=== PATIENT | male | born 1960 | race Caucasian/White ===

== ENCOUNTER → 2020-08-05 09:35 | Outpatient (CLI) | payer BC, SELFPAY ==
--- NOTE | ~2020-08-05 | MR_ITS ---
EXAMINATION: MR knee LT wo con DATE: 08/05/2020 10:47 INDICATION: Left knee pain and swelling. Meniscal tear. TECHNIQUE: Magnetic resonance imaging (MRI) of the left knee was performed without intravenous contra st. Sequences included axial PD-weighted FS FSE, coronal PD-weighted FSE and PD-weighted FS FSE, sagi ttal PD-weighted FSE, and sagittal T2-weighted FS FSE. COMPARISON: Left knee radiographs 06/30/2020 FINDINGS: Medial compartment: There is a complex tear involving body and posterior horn of medial meniscus. There is cartilage surf kim irregularity of tibial condyle. There is shallow partial-thickness cartilage loss of femoral cond yle involving the central and lateral articular surface. Lateral compartment: There is a radial tear of posterior horn of lateral meniscus. There is shallow partial-thickness cart ilage loss of tibial condyle, worst posteriorly. There is deep partial thickness cartilage loss of fe moral condyle involving the central and extreme posterior articular surface. Patellofemoral compartment: There is deep partial thickness cartilage loss of patellar medial facet and median ridge. There is de ep partial thickness cartilage loss of central and medial trochlea with mild subchondral edema-like m arrow signal intensity. Ligaments and tendons: The anterior and posterior cruciate ligaments are normal. There are changes of prior sprains of media l collateral ligament and fibular collateral ligament characterized by thickening and increased signa l intensity. There is mild patellar tendinopathy. Fluid: There is a large knee joint effusion with synovitis. There is trace fluid in a Stockton's cyst. There is mild prepatellar and superficial infrapatellar bursitis. IMPRESSION: 1. 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 2. Tears of medial and lateral menisci. 3. Large knee joint effusion with synovitis. Reviewed, dictated and finalized at location A. NSING MANAGER IMPRESSION: 1. 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 2. Tears of medial and lateral menisci. 3. Large knee joint effusion with synovitis.
== END ==
PROVIDERS: PCP Family Medicine; Visit Provider Orthopaedic Surgery
DX: S83.242A Other tear of medial meniscus, current injury, left knee, initial encounter (principal); M22.2X2 Patellofemoral disorders, left knee; S83.282A Other tear of lateral meniscus, current injury, left knee, initial encounter; M25.462 Effusion, left knee
CPT/HCPCS: 73721

== ENCOUNTER 2020-08-31 08:12 | Outpatient (CLI) | payer BC, SELFPAY ==
--- NOTE | 2020-08-31 08:15 | ECG_ITS ---
Measurements Intervals [place] Rate: 69 P: 43 MS: 161 QRS: 19 QRSD: 118 T: 42 QT: 380 QTc: 408 Interpretive Statements SINUS RHYTHM VENTRICULAR PREMATURE COMPLEX INTRAVENTRICULAR CONDUCTION DELAY DELAYED PRECORDIAL R/S TRANSITION BASELINE ARTIFACT- I, II, III, AVR, AVL, AVF BORDERLINE ECG Electronically Signed On 08-31-2020 8:57:34 [employer]OCK AND STATION AGENT by Alfa Shfaer D.O.
== END 2020-08-31 08:13 | disposition home or self-care (01) ==
LOC: ANHSURGERY 08:15
PROVIDERS: PCP Family Medicine; Visit Provider Orthopaedic Surgery
DX: Z01.818 Encounter for other preprocedural examination (principal); Z87.891 Personal history of nicotine dependence; I45.9 Conduction disorder, unspecified
CPT/HCPCS: 93005

== ENCOUNTER 2020-09-03 01:18 | Outpatient (CLI) | payer BC, SELFPAY ==
[2020-09-03 19:31] LABS: SARS-CoV-2 RNA PCR Negative
== END 2020-09-03 01:19 | disposition home or self-care (01) ==
LOC: ANHCOVIDDT 01:18
PROVIDERS: PCP Family Medicine; Visit Provider Orthopaedic Surgery
DX: Z01.818 Encounter for other preprocedural examination (principal); Z20.828 Contact with and (suspected) exposure to other viral communicable diseases
CPT/HCPCS: 87635; C9803; U0003

== ENCOUNTER 2020-09-06 00:07 | Day surgery (SDC) | payer BC, SELFPAY ==
[2020-08-29 12:17] VITALS: BMI 26.4
--- NOTE | 2020-09-05 12:57 | WPDANESEPPF ---
Anes - Initial Pre Proc Eval Procedure: Operation Date: 09/06/20 13:30 Proposed Procedures p Arthroscopic Partial Medial and Lateral Meniscectomy Left Knee - Garry Salgado MD Date/Time: 09/05/20 12:57 Surgeon: Garry Salgado MD Pre Op Diagnosis: acute meniscal tear left knee Patient Data Age: 60 Gender: M Height: 1.83 m Weight: 88.45 kg Allergies Allergy/AdvReac Type Severity Reaction Status Date / Time No Known Allergies Allergy Verified 09/06/20 11:21 Home Medications Medication Instructions Recorded Confirmed Type multivitamin 1 cap PO DAILY 05/27/20 08/29/20 History pantoprazole 40 mg tablet,delayed 40 mg PO QAM 05/27/20 08/29/20 History release rizatriptan 10 mg tablet See Rx Instructions PO .COMPLEX 05/27/20 08/29/20 History sildenafil 50 mg PO DAILY PRN 09/06/20 09/06/20 History Patient hx anesthesia problems: none Family hx anesthesia problems: none PMFSH Past Medical History Medical History (Updated 09/05/20 @ 12:57 by Geovanni Lopez DO) GERD with esophagitis History of prostate cancer Seborrheic dermatitis Ventricular premature depolarization Surgical History Surgical History (Updated 09/05/20 @ 12:57 by Geovanni Lopez DO) History of arthroscopy of right knee (~01/2018) History of prostatectomy Hx laparoscopic cholecystectomy (~12/2018) Hx of hand surgery Family History Family History Father Malignant neoplasm of prostate Father Malignant neoplasm of prostate Other Malignant neoplasm of prostate Social History Social History Smoking packs per day: 1 Smoking cigarettes per day: 20.0 Years smoked: 20 Smoking pack-years: 20.00 Smoking status: Former smoker Tobacco type: cigarettes Second hand tobacco smoke exposure: No Smoking end date: 09/09/04 Alcohol intake: current Alcohol use details: 4-5 DRINKS PER MONTH Living arrangements: with family Spiritual care concerns: No Anes - Eval Final PreProcedure Day of Procedure 09/05/20 12:57 Patient weight: overweight Heart: regular rate and rhythm Lungs: clear to auscultation and normal air movement Airway: Mallampati scale class II Neurological: alert and oriented Last oral intake: >/= 8 hours ASA classification: II Emergent: no Anesthetic plan: proceed Anesthesia type and monitoring: general LMA and standard monitoring Informed Consent: The patient's anesthetic plan and its attendant risks and benefits were discussed with the patient/family/POA. Questions were solicited and answers provided to the satisfaction of the patient/family/POA.
[2020-09-06] MEDS: ACETAMINOPHEN 500 MG TABLET 1000 MG PO (11:32)
[2020-09-06] MEDS: LACTATED RINGERS 1,000 ML 30 ML IV CONT ×2 (11:32→15:24)
[2020-09-06] MEDS: KETOROLAC 15 MG/ML VIAL (*BKC) IV PUSH (11:37)
[2020-09-06 11:40] VITALS: BP 126/83; PULSE 47; RESP 20; TEMP 36.5; O2SAT 98
--- NOTE | 2020-09-06 12:31 | WPDHPUPDATE1 ---
History and Physical Update Update Date/Time: 09/06/20 12:31 History and Physical has been reviewed, including an updated exam of the patient. There are NO changes in the patient's condition. Risks, benefits, and alternatives have been discussed and questions answered. Patient agrees to proceed with procedure.
[2020-09-06] MEDS: ceFAZolin 2 GM/D5W 50 ML 2 GM/50 ML BAG IVPB (13:53)
[2020-09-06] MEDS: BUPIVACAINE HCL 0.5% PF 30 ML VIAL INFILTRATE (14:04)
[2020-09-06 14:54] VITALS: BP 109/73; PULSE 83; RESP 11; TEMP 36.2; O2SAT 100
[2020-09-06 15:09] VITALS: BP 137/89; PULSE 90; RESP 18; O2SAT 100
--- NOTE | 2020-09-06 15:16 | SUR.PHASEI ---
1454; CEM ELECTRODYNAMICIST REPORTS PT HAVING RUNS OF MULTIFOCAL PVC's AND QUADRIGEMINY IN OR. PT IN NSR WITH OCCASION MF PVC's ON PACU MONITOR.
--- NOTE | 2020-09-06 15:19 | SUR.PHASEI ---
PT AWAKE AND ALERT. TALKATIVE. PT SQUINTING EYES WHILE SPEAKING. ASKED PT IF HE IS HAVING EYE PAIN. PT STATES NO.
[2020-09-06 15:25] VITALS: BP 139/86; PULSE 82; RESP 16; O2SAT 97
--- NOTE | 2020-09-06 15:31 | SUR.PHASEI ---
PT AWAKE AND ALERT. DENIES PAIN OR NAUSEA. READY FOR PO FLUIDS.
[2020-09-06 15:34] VITALS: BP 132/88; PULSE 79; RESP 16
[2020-09-06 16:00] VITALS: BP 132/79; PULSE 79; RESP 16
[2020-09-06] MEDS: oxyCODONE HCL (*CRX) 5 MG TAB IR PO (16:36)
--- NOTE | 2020-09-06 16:44 | SUR.PHASEII ---
CRUTCHES ORDERED FOR PATIENT. PATIENT STATES HE KNOWS HOW TO USE THEM.
--- NOTE | 2020-09-07 12:37 | P.OP_ITS ---
Procedure Note - Detailed Date of procedure: 09/06/20 Pre-op diagnosis: acute meniscal tear left knee Post-op diagnosis: other (1. Medial meniscus and lateral mensicus tears 2. Osteochondral defect of lateral femoral condyle ) Procedure performed: 1. Arthroscopic partial medial and lateral meniscectomy 2. Arthroscopic microfracture of lateral condyle defect 8mm by 15mm. Description of procedure: The medial meniscus had extensive complex tearing. The lateral posterior horn had mild tearing which required slight trimming of the posterior horn. The weight-bearing lateral femoral condyle had a ovoid defect. This was scraped to bleeding bone and micro fractured with the awls. Good bleeding bone marrow was noted after conclusion of the procedure. The features of this defect were such that good result from microfracture can be exp ected. The defect was 8 mm wide by 15 mm long. Good peripheral rim of cartilage. Tibial cartilage had mild softness but otherwise was intact. Anesthesia: [facility] Surgeon: Garry Salgado MD Photographer Model: Kenia Markham PA-C Estimated blood loss (mL): 5 Complications: None Condition: stable Disposition: same day Findings: Brief History: The patient complained of knee pain, swelling and mechanical symptoms despite conservative treatment. MRI confirmed the presence of a medial meniscus tear, but lateral pain and subtle MRI findings were noted laterally. Procedure Details: The patient was identified and the surgical site confirmed and signed in the preoperative holding area. Antibiotics were started per protocol. She was brought to the operative room and transferred to the OR table. A general anesthetic was administered. Supine position with placement of a well padded tourniquet. The leg support was lowered and the contralateral limb was supported with a soft bolster. The knee was prepped and draped in the usual sterile fashion. A time-out was performed. The portal sites were marked and infiltrated with 0.5% Marcaine 20 mL. The limb was exsanguinated and the tourniquet inflated to 300 mL Hg. Standard inferolateral and inferomedial portals were established. Inflow was obtained with the saline pump. The camera was introduced. Diagnostic inspection of the joint was accomplished. The medial meniscus was debrided with the arthroscopic shaver and punches until stable. Lateral posterior horn and minimal changes but significant enough that a modest meniscectomy was performed. The defect on the lateral femoral condyle was observed. It was gently curetted and the overlying fibrous tissue revealed the bone. The edge was good and was slightly trimmed with the shaver and the curette to create a good border for microfracture. The defect measured 8 mm wide by 15 mm long. Good bleeding from the microfracture awl holes was confirmed after releasing the tourniquet. The arthroscopic instruments were removed. The tourniquet released and wounds closed with subcutaneous 3-0 Monocryl absorbable suture. Steri strips and a sterile dressing were applied. A light elastic wrap was placed. The patient was extubated and brought to the recovery room in stable condition.
== END 2020-09-06 16:51 | disposition home or self-care (01) ==
PROVIDERS: PCP Family Medicine; Visit Provider Orthopaedic Surgery
PROC: (CPT 29870; principal; 2020-09-06 13:30)
DX: S83.232A Complex tear of medial meniscus, current injury, left knee, initial encounter (principal); S83.282A Other tear of lateral meniscus, current injury, left knee, initial encounter; M94.8X6 Other specified disorders of cartilage, lower leg; X50.0XXA Overexertion from strenuous movement or load, initial encounter; K21.9 Gastro-esophageal reflux disease without esophagitis; Z85.46 Personal history of malignant neoplasm of prostate; Z87.891 Personal history of nicotine dependence
CPT/HCPCS: 29880; 29879; A9270; J0690; J1100; J1885; J2250; J2370; J2405; J2704; J3010; J7120

== ENCOUNTER 2021-07-28 00:45 | Day surgery (SDC) | payer BC, SELFPAY ==
[2021-07-13 10:23] VITALS: BMI 25.7
[2021-07-28 10:17] VITALS: BP 125/96; PULSE 78; RESP 18; TEMP 36.8; O2SAT 99; BMI 25.6
[2021-07-28] MEDS: LACTATED RINGERS 1,000 ML 150 ML IV CONT (10:31)
--- NOTE | 2021-07-28 10:33 | WPDGICN ---
Assessment and Plan Assessment and plan (1) Encounter for screening colonoscopy: Code(s): Z12.11 - Encounter for screening for malignant neoplasm of colon Status: Acute Assessment and Plan: Patient presents for neoplasia screening colonoscopy. Appears to be at average risk for colon polyps. Further recommendations will be given after endoscopy. GI Consult Note Consult date/time: 07/28/21 10:33 HPI: Donavon Mckeon is a 61 year old male Presents for screening colonoscopy. Patient reports that his weight appetite and bowel movements are normal. Patient denies abdominal pain. He has had no bleeding. Family history is noncontributory. Patient reports his last colonoscopy 10 years ago was unremarkable. He desires neoplasia screening. Review of Systems Review of Systems: All systems reviewed & are unremarkable except as noted in HPI and below PMFSH Past Medical History Medical History (Updated 07/28/21 @ 10:35 by Ben Akbar MD) GERD with esophagitis History of prostate cancer Seborrheic dermatitis Ventricular premature depolarization Surgical History Surgical History (Updated 11/14/20 @ 09:44 by Loly Reed MA) History of arthroscopy of right knee (~01/2018) History of meniscectomy of left knee (~09/06/20) Partial medial and lateral w/ micro fx History of prostatectomy Hx laparoscopic cholecystectomy (~12/2018) Hx of hand surgery Family History Family History Father Malignant neoplasm of prostate Father Malignant neoplasm of prostate Other Malignant neoplasm of prostate Social History Social History Smoking packs per day: 1 Smoking cigarettes per day: 20.0 Years smoked: 24 Smoking pack-years: 24.00 Smoking status: Former smoker Tobacco type: cigarettes Second hand tobacco smoke exposure: No Smoking end date: 09/09/04 Alcohol intake: current Alcohol use details: 4-5 DRINKS PER MONTH Substance use: never Substance use type: does not use Living arrangements: with family Spiritual care concerns: No Meds Home Medications and Allergies Home Medications Medication Instructions Recorded Confirmed Type multivitamin 1 cap PO DAILY 05/27/20 07/28/21 History pantoprazole 40 mg tablet,delayed 40 mg PO QAM 05/27/20 07/28/21 History release rizatriptan 10 mg tablet See Rx Instructions PO .COMPLEX PRN 05/27/20 07/28/21 History sildenafil 50 mg PO DAILY PRN 09/06/20 07/28/21 History Allergies Allergy/AdvReac Type Severity Reaction Status Date / Time No Known Allergies Allergy Verified 07/28/21 10:16 Vital Signs Vital Signs - 24 hr 07/28/21 10:17 Temperature 98.3 F Pulse Rate 78 Respiratory Rate 18 Blood Pressure 125/96 H Pulse Oximetry 99 Exam Narrative: Physical exam reveals patient to be alert. Vital signs stable. HEENT exam is unremarkable. Patient is anicteric. Lungs are clear to auscultation and percussion. Heart is without murmur or extra sounds. Abdominal exam bowel sounds are present soft nontender with no hepatosplenomegaly. Digital external rectal exam is normal.
--- NOTE | 2021-07-28 10:46 | P.PNAN_ITS ---
Anes - Initial Pre Proc Eval Procedure: Operation Date: 07/28/21 11:00 Proposed Procedures p Screening Colonoscopy - Ben Akbar MD Date/Time: 07/28/21 10:46 Surgeon: Ben Akbar MD Pre Op Diagnosis: neoplasm screening Patient Data Age: 61 Gender: M Height: 1.83 m Weight: 85.6 kg Last Vital Signs Temp 98.3 F 07/28/21 10:17 Pulse 78 07/28/21 10:17 Resp 18 07/28/21 10:17 BP 125/96 H 07/28/21 10:17 Pulse Ox 99 07/28/21 10:17 Allergies Allergy/AdvReac Type Severity Reaction Status Date / Time No Known Allergies Allergy Verified 07/28/21 10:16 Home Medications Medication Instructions Recorded Confirmed Type multivitamin 1 cap PO DAILY 05/27/20 07/28/21 History pantoprazole 40 mg tablet,delayed 40 mg PO QAM 05/27/20 07/28/21 History release rizatriptan 10 mg tablet See Rx Instructions PO .COMPLEX PRN 05/27/20 07/28/21 History sildenafil 50 mg PO DAILY PRN 09/06/20 07/28/21 History Patient hx anesthesia problems: none Family hx anesthesia problems: none Results Review: All pre-operative results and documents have been reviewed as part of the pre-operative evaluation. [facility] Past Medical History Medical History (Updated 07/28/21 @ 10:35 by Ben Akbar MD) GERD with esophagitis History of prostate cancer Seborrheic dermatitis Ventricular premature depolarization Surgical History Surgical History (Updated 11/14/20 @ 09:44 by Loly Reed MA) History of arthroscopy of right knee (~01/2018) History of meniscectomy of left knee (~09/06/20) Partial medial and lateral w/ micro fx History of prostatectomy Hx laparoscopic cholecystectomy (~12/2018) Hx of hand surgery Family History Family History Father Malignant neoplasm of prostate Father Malignant neoplasm of prostate Other Malignant neoplasm of prostate Social History Social History Smoking packs per day: 1 Smoking cigarettes per day: 20.0 Years smoked: 24 Smoking pack-years: 24.00 Smoking status: Former smoker Tobacco type: cigarettes Second hand tobacco smoke exposure: No Smoking end date: 09/09/04 Alcohol intake: current Alcohol use details: 4-5 DRINKS PER MONTH Substance use: never Substance use type: does not use Living arrangements: with family Spiritual care concerns: No Anes - Eval Final PreProcedure Day of Procedure 07/28/21 10:46 Patient weight: normal Heart: regular rate and rhythm Lungs: clear to auscultation Airway: Mallampati scale class II Neurological: alert and oriented Last oral intake: >/= 8 hours ASA classification: II Emergent: no Anesthetic plan: proceed Anesthesia type and monitoring: general GIVS and standard monitoring Results Review: All pre-operative results and documents have been reviewed as part of the pre-operative evaluation. Informed Consent: The patient's anesthetic plan and its attendant risks and benefits were discussed with the patient/family/POA. Questions were solicited and answers provided to the satisfaction of the patient/family/POA.
[2021-07-28 11:32] VITALS: BP 113/77; PULSE 82; RESP 19; O2SAT 99
[2021-07-28 11:42] VITALS: BP 118/81; PULSE 72; RESP 21; O2SAT 99
[2021-07-28 11:52] VITALS: BP 131/89; PULSE 69; RESP 22; O2SAT 100
== END 2021-07-28 11:59 | disposition home or self-care (01) ==
PROVIDERS: PCP Family Medicine; Visit Provider Internal Medicine Gastroenterology
PROC: 0DJD8ZZ Inspection of Lower Intestinal Tract, Via Natural or Artificial Opening Endoscopic (ICD-10-PCS; CPT 45378; principal; 2021-07-28 11:00)
DX: Z12.11 Encounter for screening for malignant neoplasm of colon (principal); K64.8 Other hemorrhoids; K21.00 Gastro-esophageal reflux disease with esophagitis, without bleeding; Z85.46 Personal history of malignant neoplasm of prostate; Z85.89 Personal history of malignant neoplasm of other organs and systems; L21.9 Seborrheic dermatitis, unspecified; I49.3 Ventricular premature depolarization; Z90.49 Acquired absence of other specified parts of digestive tract; Z87.891 Personal history of nicotine dependence
CPT/HCPCS: 45378; J2704; J7120

== ENCOUNTER 2024-02-04 07:29 | Outpatient (CLI) | payer BC, SELFPAY ==
--- NOTE | ~2024-02-04 | XR_ITS ---
XR shoulder RT min 2V 02/04/2024 07:43 Indication: Right shoulder pain Procedure: 4 views right shoulder Comparison: No prior studies for comparison. Findings: There is mild polyarticular osteoarthritis. No fracture, subluxation or dislocation. No sig nificant soft tissue abnormality. No foreign bodies. Impression: 1: Mild polyarticular osteoarthritis of the right shoulder. Reviewed, dictated and finalized at location B. Impression: 1: Mild polyarticular osteoarthritis of the right shoulder.
== END 2024-02-04 07:30 ==
PROVIDERS: PCP Family Medicine; Visit Provider Family Medicine
DX: M19.011 Primary osteoarthritis, right shoulder (principal)
CPT/HCPCS: 73030

== ENCOUNTER 2024-02-14 09:03 | Outpatient (CLI) | payer BC, SELFPAY ==
--- NOTE | ~2024-02-14 | MR_ITS ---
MR arthrogram of the right shoulder CLINICAL HISTORY: Shoulder pain TECHNIQUE: Following intra-articular injection of dilute gadolinium, axial T2 fat-sat and axial T1 fa t-sat images, coronal T2 fat-sat and T1 fat-sat images, and sagittal T1-weighted and T2 fat-sat image s were performed. T1 postcontrast fat sat imaging was also performed in the abduction external rotati on position. FINDINGS: There is moderate to advanced AC joint degenerative change. Coracoclavicular, coracoacromia l, coracohumeral ligaments appear intact. There is bony productive change at the distal clavicle with moderate subacromial spur. There are complete, full-thickness tears involving the entirety of the supraspinatus and infraspinatu s tendons. Fluid-filled gap measures approximately 2.8 x 3.3 cm in extent. Subscapularis tendon is in tact. There is complete rupture of the proximal tendon of long head biceps, which is retracted to the bicipital groove. No labral tear evident. Inferior glenohumeral ligament is intact. Injected contrast passes through the rotator cuff defect fr om the glenohumeral joint into the subacromial/subdeltoid bursa. No muscle atrophy or edema evident. No degenerative change of the glenohumeral joint. IMPRESSION: Complete, full-thickness tears involving the entirety of supraspinatus and infraspinatus tendons, as detailed above. Complete rupture of the proximal tendon of long head of the biceps tendon with retraction to the bici pital groove. Moderate to advanced AC joint degenerative change. Reviewed, dictated and finalized at location . IMPRESSION: Complete, full-thickness tears involving the entirety of supraspinatus and infr aspinatus tendons, as detailed above. Complete rupture of the proximal tendon of long head of the biceps tendon with retraction to the bicipital groove. Moderate to advanced AC joint degenerative change.
--- NOTE | ~2024-02-14 | XR_ITS ---
EXAMINATION: XR fl inj shoulder RT - MR/CT DATE: 02/14/2024 10:11 INDICATION: Right shoulder pain. TECHNIQUE: A time-out was performed to verify the patient's name, date of , and procedure to b e performed. The procedure including the risks, benefits, and alternatives was discussed with the pat ient. Risks discussed included bleeding and infection. The patient understood the risks and agreed to proceed. The skin overlying the right glenohumeral joint was prepped and draped in usual sterile fas hion. Anesthetic was administered with 1% lidocaine subcutaneously. A 22 G needle was advanced unde r fluoroscopic guidance into the joint. Subsequently, injectate consisting of 12 mL of 1:200 Multiha nce, 1:4 1% lidocaine, and 1:4 Omnipaque 240 was instilled. The needle was removed and the entry sit e was cleaned and dressed. There were no immediate complications. Fluoroscopy exposure time was 0.1 minutes. The total number of images was 1. FINDINGS: Real-time fluoroscopy demonstrates the needle and contrast in the right glenohumeral joint. IMPRESSION: 1. Successful right glenohumeral joint injection of contrast for subsequent MR arthrography. Reviewed, dictated and finalized at location A.
== END 2024-02-14 09:04 ==
LOC: MICIMG 09:04
PROVIDERS: PCP Family Medicine; Visit Provider Family Medicine
DX: M75.121 Complete rotator cuff tear or rupture of right shoulder, not specified as traumatic (principal); M19.011 Primary osteoarthritis, right shoulder
CPT/HCPCS: 23350; 73222; 77002; A9577; Q9967

== ENCOUNTER 2024-06-04 08:01 | Outpatient (CLI) | payer BC, SELFPAY ==
--- NOTE | 2024-06-04 08:12 | ECG_ITS ---
Test Date: 2024-06-04 08:23:56 Measurements Intervals [place] Rate: 75 P: 25 CT: 182 QRS: -49 QRSD: 135 T: 11 QT: 384 QTc: 429 Interpretive Statements SINUS RHYTHM WITH OCCASIONAL VENTRICULAR PREMATURE COMPLEXES LEFT ANTERIOR FASCICULAR BLOCK LEFT VENTRICULAR HYPERTROPHY BASELINE ARTIFACT- I, II, III, AVR, AVL, AVF, V1-V6 ABNORMAL ECG No previous ECG available for comparison Electronically Signed On 06-04-2024 08:26:59 CDT by Alfa Shafer D.O.
== END 2024-06-04 08:02 | disposition home or self-care (01) ==
PROVIDERS: PCP Family Medicine; Visit Provider Orthopaedic Surgery
DX: Z01.810 Encounter for preprocedural cardiovascular examination (principal); F17.210 Nicotine dependence, cigarettes, uncomplicated; R94.31 Abnormal electrocardiogram [ECG] [EKG]
CPT/HCPCS: 93005

== ENCOUNTER 2024-06-09 01:50 | Day surgery (SDC) | payer BC, SELFPAY ==
[2024-06-01 10:32] VITALS: BMI 27.1
--- NOTE | 2024-06-01 10:33 | PC.NURSE ---
Report to the Outpatient Waiting Room, entrance under the green pavilion located off [facility], at time _0830_ on date _[id number]_. Planned Procedure Time: _1030_.? Time changes happen often and if your time is changed the preop area will call you the afternoon before. - You and your visitor will be asked to self-screen and do not enter if you have any COVID symptoms. Please call surgeon if you need to reschedule. - A mask is optional within the hospital at this time. Patients may have clear liquids (water, carbonated beverages, clear teas, apple juice) until 3 hours prior to surgery with a maximum of 20 ounces. - No food from midnight until time of surgery and no smoking Take only the following medications with a SIP of water on the morning of surgery: ___Pain pill if needed. DO NOT STOP ANY OF YOUR OTHER PRESCRIPTION MEDICATIONS PRIOR TO SURGERY EXCEPT THE FOLLOWING Medications to discontinue per physician ____All vitamins Date to take last tftw____[id number] Please no make-up, nail surinamese, hairspray, perfume, deodorant, or body powder the day of surgery.? No jewelry (including any body piercings) or valuables the day of surgery, leave them at home.? Please take a shower or bath the night before, or the morning of, surgery with an antibacterial soap.? Wear comfortable, loose fitting clothing.? - Jewelry must be removed prior to entering the operating room.? Rings and piercings that are not removed may be cut off. - The hospital will not accept responsibility for valuables.? - Please leave all valuables, including medications, at home the day of surgery. If you are going home after surgery, a licensed auto carrier driver must drive you home.? - NO public transportation without another adult if you receive anesthesia. - We recommend that an adult stay with you for 24 hours following discharge. - We also recommend that you do not drive, make important decision, drink alcoholic beverages, or take any drugs that were not prescribed by your health care provider for at least 24 hours after your discharge time. Follow any additional instructions given to you from your surgeon. Telephone instructions given to __Randy__and asked if any additional questions and then verbalized understanding. Patient advised to call surgeon office or pre surgery nurse liaison [phone] if any additional questions.
--- NOTE | 2024-06-08 13:17 | WPDANESEPPF ---
Anes - Initial Pre Proc Eval Procedure: Operation Date: 06/09/24 10:30 Proposed Procedures p Right Shoulder Arthroscopic Rotator Cuff Repair with Subacromial Decompression - Grary Salgado MD Date/Time: 06/08/24 13:17 Surgeon: Garry Salgado MD Pre Op Diagnosis: Complete Right Rotator Cuff Tear Patient Data Age: 64 Gender: M Height: 1.83 m Weight: 90.9 kg Allergies Allergy/AdvReac Type Severity Reaction Status Date / Time No Known Allergies Allergy Verified 06/09/24 10:01 Home Medications Medication Instructions Recorded Confirmed Type multivitamin 1 cap PO DAILY 05/27/20 06/09/24 History rizatriptan 10 mg tablet (Maxalt) See Rx Instructions PO .COMPLEX 05/27/20 06/09/24 History PRN Migraine Headache sildenafil 50 mg tablet 50 mg PO DAILY PRN Sexual Activity 09/06/20 06/09/24 History hydrocodone 5 mg-acetaminophen 325 1 - 2 tablet PO Q12H PRN pain #30 03/27/24 06/09/24 Rx mg tablet tabs cholecalciferol (vitamin D3) 50 50 mcg PO DAILY 06/01/24 06/09/24 History mcg (2,000 unit) capsule (Vitamin D3) cyanocobalamin (vitamin B-12) 1,000 mcg PO DAILY 06/01/24 06/09/24 History 1,000 mcg tablet (Vitamin B-12) vitamin K2 180 mcg capsule 180 mcg PO DAILY 06/01/24 06/09/24 History Patient hx anesthesia problems: none Family hx anesthesia problems: none Results Review: All pre-operative results and documents have been reviewed as part of the pre-operative evaluation. [facility] Past Medical History Medical History Complete tear of right rotator cuff GERD with esophagitis History of prostate cancer Seborrheic dermatitis Ventricular premature depolarization Surgical History Surgical History History of arthroscopy of right knee (~01/2018) History of meniscectomy of left knee (~09/06/20) Partial medial and lateral w/ micro fx History of prostatectomy History of shoulder surgery Rotator cuff repair, left side x 2 Hx laparoscopic cholecystectomy (~12/2018) Hx of hand surgery Family History Family History Father Malignant neoplasm of prostate Father Malignant neoplasm of prostate Other Malignant neoplasm of prostate Social History Social History Smoking packs per day: 1 Smoking cigarettes per day: 20.0 Years smoked: 20 Smoking pack-years: 20.00 Smoking status: Former smoker Tobacco type: cigarettes Second hand tobacco smoke exposure: No Smoking end date: 06/01/04 Alcohol intake: current Alcohol use details: 4-5 DRINKS PER MONTH Substance use: never Substance use type: does not use Do You Feel Safe in your Home?: Yes Lack of Transportation: No Lack of Food: Never True Current Housing: I Have Housing Concerned About Future Housing: No Difficulty Paying Gas/Electric Bills: No Difficulty Paying for Meds: No Currently Unemployed: No Education: Trade/Vocational Certificate Difficulty w/ Childcare or Family Care: No Living arrangements: with family Spiritual care concerns: No Anes - Eval Final PreProcedure Day of Procedure 06/08/24 13:17 Patient weight: overweight Heart: regular rate and rhythm Lungs: clear to auscultation Airway: Mallampati scale class II Neurological: alert and oriented Last oral intake: >/= 8 hours ASA classification: II Emergent: no Anesthetic plan: proceed Anesthesia type and monitoring: general ETT and standard monitoring Results Review: All pre-operative results and documents have been reviewed as part of the pre-operative evaluation. Informed Consent: The patient's anesthetic plan and its attendant risks and benefits were discussed with the patient/family/POA. Questions were solicited and answers provided to the satisfaction of the patient/family/POA.
[2024-06-09] VITALS (8 sets, daily range): BP systolic 106–131; BP diastolic 54–80; PULSE 72–85; RESP 11–20; TEMP 36.4–36.5; O2SAT 95–100
--- NOTE | 2024-06-09 07:12 | WPDHPUPDATE1 ---
History and Physical Update Update Date/Time: 06/09/24 07:12 History and Physical has been reviewed, including an updated exam of the patient. There are NO changes in the patient's condition. Risks, benefits, and alternatives have been discussed and questions answered. Patient agrees to proceed with procedure.
[2024-06-09] MEDS: LACTATED RINGERS 1,000 ML 30 ML IV CONT ×2 (08:45→13:57)
[2024-06-09] MEDS: KETOROLAC 15 MG/ML VIAL (*BKC) IV PUSH (10:09)
[2024-06-09] MEDS: ACETAMINOPHEN 500 MG TABLET 1000 MG PO (10:09)
--- NOTE | 2024-06-09 11:39 | WPDANESPNB ---
Anes - Peripheral Nerve Block Date/Time: 06/09/24 11:39 I have discussed with the patient/family/POA the placement of a peripheral nerve block for post-operative pain management, including associated risks, benefits, complications, and side effects. Alternative methods of post-operative analgesia were detailed. Questions were solicited and answers provided to the satisfaction of the patient/family/POA. Time-Out: A pre-procedural Time-Out was completed immediately before starting the procedure and confirmed: Patient Identification, Site, Procedure, Patient Position and the Availability of Requisite Equipment. Clinical Indications: Acute post-operative pain management requested by the operative surgeon. Nerve Block Insertion Note Anes-nerve block: interscalene right Patient position: supine Skin prep: chlorhexidine Needle: 22 gauge, stimulating, insulated echogenic needle. Needle length: 50 mm Technique: ultrasound Injectate: bupivacaine 0.5% with epi 5 mcg/ml (30cc- no epi) Observations: tolerated well Complications: none Procedure start time:: 1100 Procedure end time:: 1104
[2024-06-09] MEDS: ceFAZolin 2 GM/D5W 50 ML 2 GM/50 ML BAG IVPB (11:44)
--- NOTE | 2024-06-09 14:03 | W.PM.PROC2 ---
Procedure Note - Detailed Date of Procedure 06/09/24 Pre-op Diagnosis Complete Right Rotator Cuff Tear Post-op Diagnosis Other (1. Rotator cuff tear 2. Subacromial impingement ) Procedure Performed Right shoulder 1. Arthroscopic rotator cuff repair 2. Arthroscopic subacromial decompression Surgeon Garry Salgado MD Record Systems Analyst Kenia Sylvester PA-C Anesthesia General and Regional ( interscalene block) Findings Large full-thickness supraspinatus and infraspinatus tear as well as upper subscapularis high-grade partial tearing. The tissue quality was good and retraction was mild. Repair of the supra and infraspinatus was accomplished without undue tension using 2 bone tunnels and 6 suture rip stop technique. The subscapularis was also repaired by a bone tunnel and 3 sutures nicely opposing the tendon back onto the lesser tuberosity. The lateral acromion appeared to be impinging on the greater tuberosity significantly. An acromioplasty was performed using the arthroscopic eugene. The articular cartilage was healthy. The labrum was intact. The biceps was absent. Description of Procedure Preoperative antibiotics were given. An interscalene block was administered in the preoperative area. The patient was bought brought to the operating room. A general anesthetic was administered. The patient was carefully positioned in the beach chair position. The head and neck were carefully positioned. The non operative extremity was also carefully positioned. The shoulder was prepped and draped in the usual sterile fashion. Examination was performed. Standard posterior and anterior arthroscopic portals were established. Inflow achieved with the arthroscopic pump using saline and epinephrine. The glenohumeral joint was carefully inspected. The cartilage appeared healthy. There was minimal synovitis. No capsule contracture. Large superior rotator cuff tear was identified as well as a high-grade partial tear of the cephalad portion of the subscapularis. A comma sign was observable. Attention was turned to the subacromial space. Two accessory lateral portals were created. A complete bursectomy was performed. The tear configuration was carefully assessed. There appeared to be significant impingement occurring at the greater tuberosity. The lateral acromion was downsloping with a spur. It was elected to proceed with arthroscopic acromioplasty to prevent further impingement. A bone tunnel was created anteriorly at the lesser tuberosity. Three sutures were passed into the cuff tendon. The 1st tissue was retrieved with a retrograde passing technique to allow a more inferior point of fixation. The 2nd 2 sutures were passed using the antegrade suture Passer. The sutures were tied arthroscopically. Attention was then turned to the superior cuff. 2 tunnels were created at the greater tuberosity. Three sutures were passed through each tunnel. All sutures were then passed through the cuff tissue. The sutures were tied arthroscopically. The 2nd and 5th suture were tied together in a box configuration creating tendon compression, and a rip stop. The arthroscopic instruments were removed. The wounds were closed with 3-0 Monocryl subcuticular suture and steri strips. There were no complications. A sling was applied and the patient brought to the recovery room. Physician assistant boiler operator, Kenia Sylvester PA-C, required for surgery; including patient positioning, draping, arthroscopic camera operation, maintaining instrument position, suture retrieval, wound closure, and dressing and sling placement. Estimated Blood Loss 10 Pathology None sent Complications No immediate complications Condition Stable Disposition PACU [facility] Billing Surgery - Charge Forward: Surgery Billing
== END 2024-06-09 16:00 | disposition home or self-care (01) ==
PROVIDERS: PCP Family Medicine; Visit Provider Orthopaedic Surgery
PROC: (CPT 29805; principal; 2024-06-09 10:30)
DX: M75.121 Complete rotator cuff tear or rupture of right shoulder, not specified as traumatic (principal); M75.41 Impingement syndrome of right shoulder; M65.811 Other synovitis and tenosynovitis, right shoulder; G89.18 Other acute postprocedural pain; K21.9 Gastro-esophageal reflux disease without esophagitis; I49.3 Ventricular premature depolarization; Z79.891 Long term (current) use of opiate analgesic; Z98.890 Other specified postprocedural states; Z90.49 Acquired absence of other specified parts of digestive tract; Z87.891 Personal history of nicotine dependence; Z85.46 Personal history of malignant neoplasm of prostate; Z80.42 Family history of malignant neoplasm of prostate
CPT/HCPCS: 64415; 29827; 29826; A4565; A9270; J0171; J0690; J1100; J1885; J2003; J2250; J2371; J2405; J2704; J3010; J7120